=== PATIENT | female | born 1970 | race American Indian/Alaskan Native ===

== ENCOUNTER 2017-04-27 06:25 | Day surgery (SDC) | payer BC ==
[2017-04-27] MEDS ORDERED: NACL 0.9% 1000 ML 1,000 ML IV SCH (08:00)
--- NOTE | 2017-04-27 08:31 | Discharge Summary ---
Providers - Providers Date of discharge: 04/27/17 Attending physician: ANICETO DIALLO Primary care physician: ESTEVAN LANDERS Hospitalization Reason for admission: outpatient EGD Condition: Stable Procedures: EGD Disposition: DISCHARGED TO HOME OR SELFCARE Core Measure Documentation - Palliative Care Palliative Care/ Comfort Measures: Not Applicable - Core Measures Any of the following diagnoses?: none Exam - Physical Exam Narrative exam: unchanged from Preop - Constitutional Vitals: Temp Pulse Resp BP Pulse Ox 98.2 F 79 8 L 129/82 98 04/27/17 08:26 04/27/17 08:26 04/27/17 08:26 04/27/17 08:26 04/27/17 08:26 Plan Activity: advance as tolerated Diet: low carbohydrate Follow up with: ESTEVAN LANDERS MD [Primary Care Provider] - 7 Days
[2017-04-27] MEDS ORDERED: DIPRIVAN 10 MG/ML IV ONE ×3 (09:12→09:13)
--- NOTE | 2017-04-27 09:12 | Anesthesia Consultation ---
Anesthesia Consult and Med Hx Date of service: 04/27/17 - Airway Anesthetic Teeth Evaluation: Good, Chipped (front tooth) Mallampati Class: Class II Intubation Access Assessment: Probably Good - Pulmonary Exam CTA: Yes - Cardiac Exam Cardiac Exam: RRR - Pre-Operative Health Status ASA Pre-Surgery Classification: ASA3 Proposed Anesthetic Plan: MAC - Cardiovascular System Hx Hypertension: Yes - Central Nervous System Hx Back Pain: Yes (and knee, on pain meds every day)
--- NOTE | 2017-04-27 09:12 | Anesthesia Day of Surgery ---
Anesthesia Day of Surgery - Day of Surgery Patient Examined: Yes Patient H&P Reviewed: Yes Patient is NPO: Yes
--- NOTE | 2017-04-27 10:48 | Operative Report ---
Operative Report Operative Report: EGD Post bypass DATE: 04/27/2017 OPERATIVE REPORT - EGD PREOP DIAGNOSIS: gastric dyspepsia POSTOP DIAGNOSIS: 1. Failure of gastrojejunostomy 2. Enterogastric Reflux SURGERY: Upper endoscopy. SURGEON: Slick Tipton M.D. CASE RESOLUTION SPECIALIST: Seb Wilson M.D. TYPE OF ANESTHESIA: MAC. ESTIMATED BLOOD LOSS: None. COMPLICATIONS: None. SPECIMENS REMOVED: None. FINDINGS: 1. normal esophagus 2. gastric pouch - 70ml 3. gastrojejunal anastomosis is 35mm INDICATIONS:INDICATION FOR PROCEDURE: Patient is a 46-year-old female s/p gastric bypass in 2013. The patient is here today for evaluation for revisional surgery. The patient is here for a planned EGD for gastric dyspepsia. PROCEDURE DETAILS: After consent was reviewed, patient was taken back to the operating room where patient was placed in the left lateral decubitus position and a bite block was placed in the mouth. After a time-out was called, MAC anesthesia was initiated. I then passed the endoscope into the patients oropharynx, into the esophagus, visualized the entire esophagus, which was all within normal limits. I then visualized the gastric pouch which was normal and about 70ml in size. The gastrojejunal anastomosis was normal at about 35mm. The proximal portion of the norma limb was normal. I then desufflated the gastric pouch and removed the endoscope. Patient tolerated procedure well and was transferred to recovery room in good and stable condition
[2017-04-27 11:10] VITALS: BP 125/76
--- NOTE | 2017-04-27 14:32 | Post Anesthesia Evaluation ---
- Post Anesthesia Evaluation Patient Participated: Yes Airway Patent: Yes Stable Respiratory Function: Yes Nausea/Vomiting: No Temp > 96.8F: Yes Pain Manageable: Yes Adequeate Hydration: Yes Anesthesia Complications: No Block Receding Appropriately: Not Applicable Patient on Ventilator: No
== END 2017-04-27 06:26 | disposition home or self-care (01) ==
LOC: GIO 06:25
PROVIDERS: ATTEND Specialist
DX: K91.89 Other postprocedural complications and disorders of digestive system (principal); I10 Essential (primary) hypertension; K21.9 Gastro-esophageal reflux disease without esophagitis; E78.4 Other hyperlipidemia; Z86.718 Personal history of other venous thrombosis and embolism; Z90.710 Acquired absence of both cervix and uterus; Z98.890 Other specified postprocedural states; Z79.899 Other long term (current) drug therapy; Z82.49 Family history of ischemic heart disease and other diseases of the circulatory system; Z83.3 Family history of diabetes mellitus
CPT/HCPCS: 43235; J2704